=== PATIENT | female | born 1980 | race Hispanic/Latino ===

== ENCOUNTER 2024-06-18 13:36 | Emergency (ER) | payer OTHER ==
[~2024-06-18] VITALS: Ht 149.9 cm; Wt 54.4 kg
--- NOTE | 2024-06-18 14:05 | ERN ---
ED Note History of Present Illness Stated Complaint: SENT BY DOCTOR Chief Complaint: Anemia Time Seen by MD: 13:56 Time Seen by Midlevel: 14:00 Dictation: Ms. Ann Marie wright a 43 year old female with history of chronic anemia who was referred to the Emergency Department this afternoon for evaluation of abnormal lab findings. She states that last night she developed lower abdominal cramping. When she went to the bathroom for BM she felt dizzy with nausea and diaphoresis. She states that she felt like she was going to pass out. She states pain resolving but she went to the [facility] and lab studies noted H/H 7.2/. UA clear. She denies having any fever, chills, shortness of breath, cough, chest pain, palpitations, edema, vomiting, hematem esis, melena, hematochezia, dysuria, menorrhagia, or headache. She states that she has history of anemia but is not currently taking any iron supplementation. She states that she has been anemic for many years but has never required a transfusion. Allergies: Coded Allergies: No Known Allergies (Unverified Allergy, Unknown, 06/18/24) Home Meds Active Scripts Ferrous Sulfate (Ferrous Sulfate) 325 Mg (65 Mg Iron) Tablet, 1 TAB PO DAILY for 30 Days, #30 TAB 0 Refills Prov:ZACHERY SINGH NP 06/18/24 Past Medical History Past Medical History: Anemia Surgical History: Appendectomy, BTL, PSYCH History: no pertinent psych hx Social History: Negative, Lives with family LMP: May 27, 2024 RN Note Reviewed/Agreed w/PFSH: Yes Review of System Dictation REVIEW OF SYSTEMS: CONSTITUTIONAL: Patient denies fevers, chills, and weight changes. Reports fatigue. EYES: Patient denies any visual symptoms. EARS, NOSE, AND THROAT: No difficulties with hearing. No symptoms of rhinitis or sore throat. CARDIOVASCULAR: Patient denies chest pains, palpitations, orthopnea and paroxysmal nocturnal dyspnea. RESPIRATORY: No dyspnea on exertion, no wheezing or cough. GI: No vomiting, hematemesis, diarrhea, hematochezia or melena. Reports lower abdominal cramping and diarrhea stools. She has had nausea without emesis. : No urinary hesitancy or dribbling. No nocturia or urinary frequency. No abnormal urethral discharge. Denies menorrhagia. MUSCULOSKELETAL: No myalgias or arthralgias. NEUROLOGIC: No chronic headaches, no seizures. Patient denies numbness, tingling or weakness.Reports having some dizziness last night while having diarrhea stools. PSYCHIATRIC: Patient denies problems with mood disturbance. No problems with anxiety. ENDOCRINE: No excessive urination or excessive thirst. DERMATOLOGIC: Patient denies any rashes or skin changes. Initial Vital Sign VS Vital Signs Date Time Temp Pulse Resp B/P (MAP) Pulse Ox O2 Delivery O2 Flow Rate FiO2 06/18/24 13:58 99.1 91 16 132/79 100 Room Air 0 06/18/24 17:53 21 Physical Exam Dictation Vital signs: Reviewed. Temp 99.2. Constitutional: No acute distress. Non-toxic appearing. Head/Face: Normocephalic, atraumatic. Eyes: Periorbital areas with no swelling, redness, or edema. Lids and lashes are normal. Conjunctival injection is absent. Sclera anicteric. Pupils equal, round, reactive to light. ENT: Pinnas intact and no signs of trauma or erythema. Ear canals clear and no discharge. TMs no erythema. No nasal discharge or bleeding noted. Oropharynx with no exudate, redness, swelling, masses, exudates, or evidence of obstruction. Uvula midline. Mucous membranes moist. Neck: Trachea midline, no masses palpated, and no cervical lymphadenopathy. No swelling. Supple, full range of motion. Chest/Axilla: No tenderness, no crepitus, no paradoxical movement, no retractions. Cardiovascular: Regular rate, regular rhythm, no murmur, no gallops. Symmetric pulses. No peripheral edema. Normotensive; 132/79. Respiratory: Respirations even and unlabored. Lung sounds clear; no wheezes, rales or rhonchi. Room air spo2 99% Gastrointestinal: Inspection is normal. No distention is appreciated. Bowel sounds are normal. No mass or organomegaly . Slight tenderness lower quadrants. No rebound. No rigidity. No voluntary or involuntary guarding. No Benítez's sign. Neurological: Normal speech, gross motor function intact, gross sensory function intact. No focal weakness/Paresthesia. Musculoskeletal/Extremities: All extremities have full range of motion, no pain or tenderness on palpation. Symmetric pulses. Integumentary: Intact. Skin is pale, warm and dry. Cap refill less than 3 seconds. Results (Laboratory/Radiology) Laboratory/Radiology Laboratory Tests Test 06/18/24 14:11 White Blood Count 7.5 K/uL (4.8-10.8) Red Blood Count 4.85 MIL/uL (4.00-5.50) Hemoglobin 6.7 g/dL (12.0-16.0) *L Hematocrit 26.1 % (36-48) L Mean Corpuscular Volume 53.8 fL (79-99) L Mean Corpuscular Hemoglobin 13.8 pg (27.0-33.0) L Mean Corpuscular Hemoglobin Concent 25.7 g/dL (32.0-36.0) L Red Cell Distribution Width 20.9 % (11.0-15.5) H Platelet Count 388 K/uL (130-400) Mean Platelet Volume 9.1 fL (7.5-10.5) Immature Granulocyte % (Auto) 0.3 % (0-1) Neutrophils (%) (Auto) 61.6 % (40.0-77.0) Lymphocytes (%) (Auto) 29.5 % (21.0-51.0) Monocytes (%) (Auto) 7.2 % (3.0-13.0) Eosinophils (%) (Auto) 0.9 % (0.0-8.0) Basophils (%) (Auto) 0.5 % (0.0-5.0) Neutrophils # (Auto) 4.6 K/uL (1.8-7.7) Lymphocytes # (Auto) 2.2 K/uL (1.0-4.8) Monocytes # (Auto) 0.5 K/uL (0.1-1.0) Eosinophils # (Auto) 0.07 K/uL (0.00-0.70) Basophils # (Auto) 0.04 K/uL (0.00-0.20) Absolute Immature Granulocyte (auto 0.02 K/uL (0-1) Nucleated Red Blood Cells 0.0 % (0.0-0.19) Red Blood Cell Morphology See comments Prothrombin Time 10.9 SEC (9.6-11.6) Prothromb Time International Ratio 1.03 (0.85-1.15) Activated Partial Thromboplast Time 24.2 SEC (26.3-35.5) L Sodium Level 138 mmol/L (136-145) Potassium Level 3.7 mmol/L (3.5-5.1) Chloride Level 105 mmol/L (101-111) Carbon Dioxide Level 26 mmol/L (21-32) Blood Urea Nitrogen 9 mg/dL (7-18) Creatinine 0.5 mg/dL (0.5-1.0) Glomerular Filtration Rate Calc 120 mL/min (>90) Random Glucose 138 mg/dL (70-105) H Total Calcium 8.4 mg/dL (8.5-10.1) L Labs Reviewed?: Yes ED Course ED Course Orders Procedure Category Date Status Time Cbc With Differential LAB 06/18/24 Complete 14:01 Type And Screen BBK 06/18/24 Complete 14:01 Basic Metabolic Panel LAB 06/18/24 Complete 14:01 Saline Lock Iv CPOE 06/18/24 Transmitted 14:01 ,Urine Test LAB 06/18/24 Logged 14:09 Pt And Ptt LAB 06/18/24 Complete 14:09 Prothrombin Time With LAB 06/18/24 Complete INR 14:09 *Nursing CPOE 06/18/24 Transmitted Communication: 15:18 Rbc-No Active Bleeding BBK 06/18/24 Complete 15:20 *Nursing CPOE 06/18/24 Transmitted Communication: 17:50 Vital Signs Date Time Temp Pulse Resp B/P (MAP) Pulse Ox O2 Delivery O2 Flow Rate FiO2 06/18/24 21:00 98.4 82 16 113/66 97 Room Air* 0 06/18/24 20:15 98.2 86 16 108/67 99 Room Air* 0 06/18/24 20:05 98.2 82 16 115/71 98 Room Air* 0 06/18/24 20:00 98.4 80 14 131/73 99 Room Air* 0 06/18/24 17:53 98.4 83 16 141/87 100 Room Air* 0 06/18/24 13:58 99.1 91 16 132/79 100 Room Air 0 Uneventful ED course. Vital signs remained stable patient is not tachycardic and has been normotensive. Room air SpO2 97-100%. Initial laboratory findings as noted below. H/H 6.7/26.1, glucose 138, and Ca 8.4. She was type and crossed and received 1 unit transfusion of PRBC. Following transfusion she states she is feeling much better. She does not wish to remain in the ED for repeat H&H. She again has no bleeding. She denies chest pain or shortness of breath she denies abdominal pain. She states she will follow up with her PCP next week.. Medical Decision Making MDM MDM: Differential diagnosis: symptomatic anemia, hemorrhage Rationale: Tests considered and ordered secondary to shared decision making include: Lab Previous outside records reviewed: Old ER visits. Risk of complication and/or morbidity or mortality of patient management: None Medications-Per medication reconciliation Need for hospitalization: Patient does not meet criteria for hospitalization. Need for emergency major/minor surgery: No There are no social concerns with this patient. Prescription drug management: ferrous sulfate Prescriptions will include symptomatic care Patient's prior external medical records from other ER visits were reviewed by me as indicated. Prior testing and results from previous visits were reviewed. Prior tests were taken into account with medical decision making and resource utilization, independent historian/historians were used to obtain complete medical history. I independently interpreted the test that were performed, results were reviewed by me and considered findings on radiology if ordered. Medical management and examination interpretation discussions were had by me with other qualified healthcare professionals as indicated for the patient's care. DX & DISP Disposition: Discharge Departure Impression: Primary Impression: Anemia Condition: Improved Scripts Ferrous Sulfate (Ferrous Sulfate) 325 Mg (65 Mg Iron) Tablet 1 TAB PO DAILY for 30 Days, #30 TAB 0 Refills Prov: ZACHERY SINGH NP 06/18/24 Additional Instructions: Rest. Drink plenty of fluids. Monitor for any signs of bleeding such as dark black or red stools, vomiting of blood, dizziness, rapid heart rate, or fainting. Start iron supplementation 325 mg daily with meal. You will need to follow up with your primary care provider. 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 Referrals: SELF,REFERRAL (PCP) Time of Disposition: 17:53 ZACHERY SINGH NP Jun 18, 2024 14:05
[2024-06-18 14:53] LABS: CREATININE 0.5 mg/dL (0.5-1.0); POTASSIUM 3.7 mmol/L (3.5-5.1)
[2024-06-18 15:00] LABS: BASOPHILS # (AUTO) 0.04 K/uL (0.00-0.20); BASOPHILS % (AUTO) 0.5 % (0.0-5.0); EOSINOPHILS # (AUTO) 0.07 K/uL (0.00-0.70); EOSINOPHILS % (AUTO) 0.9 % (0.0-8.0); HEMATOCRIT 26.1 % (36-48); IMMATURE GRANULOCYTE ABSOLUTE 0.02 K/uL (0-1); LYMPHOCYTES # (AUTO) 2.2 K/uL (1.0-4.8); LYMPHOCYTES % (AUTO) 29.5 % (21.0-51.0); MEAN CORPUSCULAR HEMOGLOBIN 13.8 pg (27.0-33.0); MEAN CORPUSCULAR HGB CONC 25.7 g/dL (32.0-36.0); MEAN CORPUSCULAR VOLUME 53.8 fL (79-99); MONOCYTES # (AUTO) 0.5 K/uL (0.1-1.0); MONOCYTES % (AUTO) 7.2 % (3.0-13.0); NEUTROPHILS # (AUTO) 4.6 K/uL (1.8-7.7); NEUTROPHILS % (AUTO) 61.6 % (40.0-77.0); PLATELET COUNT (AUTO) 388 K/uL (130-400); RED BLOOD CELL COUNT(AUTO) 4.85 MIL/uL (4.00-5.50); RED CELL DISTRIBUTION WIDTH 20.9 % (11.0-15.5); WHITE BLOOD COUNT (AUTO) 7.5 K/uL (4.8-10.8)
[2024-06-18 15:14] LABS: INR 1.03 (0.85-1.15); PROTHROMBIN TIME 10.9 SEC (9.6-11.6)
[2024-06-18 15:16] LABS: PARTIAL THROMBOPLASTIN TIME 24.2 SEC (26.3-35.5)
[2024-06-18] MEDS ORDERED: FERR-72 PO (17:51)
[2024-06-18 22:09] VITALS: BP 121/68; PULSE 82; RESP 16; TEMP 98.4; O2SAT 98
== END 2024-06-18 22:16 | disposition home or self-care (01) ==
LOC: EDH 13:36
DX: D64.9 Anemia, unspecified (principal); Z79.01 Long term (current) use of anticoagulants; Z90.49 Acquired absence of other specified parts of digestive tract; Z98.51 Tubal ligation status
CPT/HCPCS: 99285; 36430; 80048; 85025; 85610; 85730; 86850; 86900; 86901; 86923; 36415; P9016